=== PATIENT | male | born 1955 | race Caucasian/White ===

== ENCOUNTER 2019-01-23 07:25 | Emergency (ER) | payer OTHER ==
[2019-01-23] MEDS ORDERED: DIAZEPAM 5 MG/ML SYG IV (08:00)
[2019-01-23 08:06] LABS: ADD MAN DIFF? NO
[2019-01-23] MEDS: ONDANSETRON 4 MG INJ IV (08:08)
[2019-01-23] MEDS: MECLIZINE 12.5 MG TAB PO (08:08)
[2019-01-23] MEDS: SOD CHLORIDE 0.9% 1,000 ML IV (08:08)
[2019-01-23 08:10] LABS: BASOPHILS % 0.5 % (0.0-2.0); EOSINOPHILS % 0.2 % (0.0-7.0); HEMATOCRIT 41.4 % (42.0-52.0); HEMOGLOBIN 13.7 g/dl (14.0-18.0); LYMPHOCYTES # 1.4 10^3/ul (0.8-2.9); LYMPHOCYTES % 22.3 % (15.0-51.0); MEAN CORPUSCULAR HEMOGLOBIN 28.5 pg (29.0-33.0); MEAN CORPUSCULAR HGB CONC 33.1 g/dl (32.0-37.0); MEAN CORPUSCULAR VOLUME 86.3 fl (82.0-101.0); MEAN PLATELET VOLUME 10.4 fl (7.4-10.4); MONOCYTE # 0.3 10^3/ul (0.3-0.9); MONOCYTES % 5.1 % (0.0-11.0); NEUTROPHIL # 4.4 10^3/ul (1.6-7.5); NEUTROPHILS % 71.4 % (39.0-77.0); PLATELET COUNT 182 10^3/UL (140-415); RED CELL DISTRIBUTION WIDTH 12.6 % (11.5-14.5)
[2019-01-23 08:10] LABS: WHITE BLOOD COUNT 6.1 10^3/ul (4.8-10.8)
[2019-01-23 08:28] LABS: ALANINE AMINOTRANSFERASE 38 IU/L (13-69); ALBUMIN 4.8 g/dl (3.3-4.9); ALBUMIN/GLOBULIN RATIO 1.37; ALKALINE PHOSPHATASE 50 IU/L (42-121); ANION GAP 10 (5-13); ASPARTATE AMINO TRANSFERASE 33 IU/L (15-46); BILIRUBIN,INDIRECT 0.7 mg/dl (0-1.1); BILIRUBIN,TOTAL 0.7 mg/dl (0.2-1.3); BLOOD UREA NITROGEN 14 mg/dl (7-20); CALCIUM 9.4 mg/dl (8.4-10.2); CARBON DIOXIDE 26 mmol/L (21-31); CHLORIDE 103 mmol/L (97-110); CREATININE 0.72 mg/dl (0.61-1.24); Estimated GFR > 60 mL/min (>60); GLUCOSE 128 mg/dl (70-220); POTASSIUM 4.4 mmol/L (3.5-5.1); SODIUM 139 mmol/L (135-144); TOTAL PROTEIN 8.3 g/dl (6.1-8.1)
[2019-01-23 08:29] LABS: PARTIAL THROMBOPLASTIN TIME 28.6 Sec (23.0-35.0); PROTIME 12.3 Sec (11.9-14.9)
[2019-01-23 08:40] LABS: TROPONIN-I < 0.012 ng/ml (0.000-0.120)
== END 2019-01-23 10:20 | disposition home or self-care (01) ==
LOC: E/R 07:25
DX: R42 Dizziness and giddiness (principal); I10 Essential (primary) hypertension
CPT/HCPCS: 70450; 80053; 84484; 85025; 85610; 85730; 93005; 96374; 99285-25